=== PATIENT | female | born 1965 | race Caucasian/White ===

== ENCOUNTER 2020-08-11 15:25 | Outpatient (REF) | payer OTHER, SELFPAY | END 2020-08-11 15:26 | disposition home or self-care (01) | LOC: HO.LAB 15:25 | PROVIDERS: Visit Provider Internal Medicine | DX: Z20.828 Contact with and (suspected) exposure to other viral communicable diseases (principal) | CPT/HCPCS: C9803; U0003 ==

== ENCOUNTER 2025-07-31 09:09 | Outpatient (AMB) | payer BC, SELFPAY ==
--- NOTE | 2025-07-31 09:11 | A.PHYSOV_ITS ---
Vital Signs 07/31/25 09:12 Height 5 ft Weight 150 lb BMI 29.3 Intake Visit Reasons: NPV Bonny Ref- neck pain Training Technician Required: No Allergies No Known Allergies (No Known Allergies*) Allergy (Verified 07/31/25 09:14) HPI Comments Details: History of Present Illness The patient is a 60 year old female presenting with neck and shoulder pain, which started approximately one month ago without a specific injury. The pain is centered in the neck muscles and radiates down her arms to her fingertips, associated with nocturnal numbness and tingling. For management, she has used Motrin, Tylenol, and Aleve, finding that Aleve provides some relief and helps with sleep. A muscle relaxer prescribed by her primary care provider was ineffective. She denies any weakness in her arms. A prior X-ray of her neck was unremarkable, showing good alignment and soft tissues. She has not undergone physical therapy or resident care director but is open to trying home exercises. 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 I reviewed the referring provider's no prior to consultation. Pain Description - Onset: Approximately one month. - Location: Central neck muscles and shoulders. - Radiation: Down both arms to the fingertips. - Associated Symptoms: Numbness and tingling in the fingertips, especially at night. - Exacerbating Factors: Pain is worse after work, which involves computer use. - Relieving Factors: Aleve helps alleviate the pain, allowing for sleep. Results - Imaging: A cervical spine X-ray was reviewed and showed good alignment and normal soft tissues. REPLACED BY [facility] Surgical History (Updated 07/28/25 @ 15:20 by Briseida Lion MA) H/O tubal ligation (Unknown) History of cholecystectomy (Unknown) History of lumpectomy (Unknown) Social History Alcohol intake: current Alcohol intake frequency: does not drink Patient Tobacco Use Status: Former Tobacco user Review of Systems Narrative Review of Systems - Musculoskeletal: Reports neck pain, shoulder pain, and pain radiating down her arms. - Neurological: Reports numbness and tingling in fingertips, especially at night. - All other systems reviewed and are negative. Physical Exam Exam Exam: Physical Exam - Neck: Tenderness to palpation noted, particularly on the right side. - Full and non-painful active range of motion including flexion, extension, and bilateral rotation. - Negative Spurling's test bilaterally. - Shoulders: Tenderness to palpation and soreness with active motion, including forward flexion. Positive Neer testing bilaterally. - Neurological: Strength is 5/5 in bilateral upper extremities against resistance in all planes tested. - Grain Cleaner strength is strong and equal. - Sensation to light touch is intact and symmetric throughout the upper extremities with no numbness elicited on exam. Vital Signs: BMI result Body Mass Index 29.3 Assessment & Plan Assessment & Plan (1) Cervical radiculopathy: Code(s): M54.12 - Radiculopathy, cervical region Category: Medical (2) Cervical spondylosis: Code(s): M47.812 - Spondylosis without myelopathy or radiculopathy, cervical region Category: Medical (3) Impingement of both shoulders: Code(s): M25.811 - Other specified joint disorders, right shoulder; M25.812 - Other specified joint disorders, left shoulder Category: Medical Plan Pain Management - Analgesia: The patient uses [id number] Aleve, which she reports takes the edge off and makes the pain livable. - Affect: Pain primarily affects her ability to sleep. - Activities of Daily Living: The pain is notably worse after work. - Aberrant Drug-Related Behaviors: None noted; the patient has been using psts-dhs-[id number] medication as needed and discontinued a prescribed muscle relaxer that was not helpful. Plan Patient was informed and verbally consented to the use of an ambient scribe for clinic note documentation during this visit. 1. Shoulder Pain And Cervicalgia The patient's symptoms of neck pain radiating into the arms are noted; however, the physical exam elicits more pain from the shoulders than the neck, suggesting possible shoulder bursitis or tendinitis. A conservative approach was mutually agreed upon, starting with home exercises for the neck and shoulders. She will continue with kpjt-hmk-tjhojms Aleve as needed. Alternatives to reduce inflammation, such as turmeric and alternating NSAIDs with Tylenol, were discussed. Other options, including cortisone injections and physical therapy, were offered but deferred. A follow-up is scheduled for five weeks to assess response to the home exercise program. If symptoms have not improved, an MRI ? of the neck will be considered at that time, as insurance requirements for conservative treatment will have been met. Discussion Notes I explained to the patient that although her pain radiates from her neck, my physical examination suggests the primary source of pain is her shoulders, possibly due to bursitis or tendinitis. We discussed several treatment options, including physical therapy, cortisone injections, different medications, and a home exercise program. The patient and I agreed to begin with a conservative approach, consisting of home exercises for her neck and shoulders. I advised her that she can continue taking Aleve as needed and discussed alternatives like turmeric or alternating with Tylenol to minimize potential side effects on her organs. I informed her that if her symptoms do not improve after about five weeks of exercises, we can then proceed with an MRI of her neck, as this period of conservative treatment is typically required by insurance companies. The patient agreed to this plan and will schedule a follow-up appointment. Patient Instructions - Begin the home exercise program for your neck and shoulders as demonstrated. - For your neck, perform gentle stretching forward, backward, and [id number]. - For your shoulders, do gentle stretching but do not lift your arms above shoulder level (90 degrees). - You may continue to take [id number]-nip-[id number] Aleve as needed for pain. - You can consider trying natural anti-inflammatories like turmeric, or alternating Aleve with Tylenol. - Schedule a follow-up appointment in five weeks to check your progress. - If your pain does not improve, we will discuss getting an MRI of your neck at your next visit. Coding Level of Care Code New Pt Level 4 (42427) Diagnoses Cervical radiculopathy M54.12 Cervical spondylosis M47.812 Impingement of both shoulders M25.811; M25.812
[2025-07-31 09:12] VITALS: BMI 29.3
--- OUTSIDE RECORDS SUMMARY | 2025-07-31 10:01 | XMS_ITS | Encounter Summary ---
Author Organization [facility] Address [address] [place] [address] Care Team Providers Care Pickler Helper Name Role Phone Debra Cosby MD Primary Care Prov ider Encounter Details Date Type Department Care Team ([facility] st Contact Info) Description 07/07/2025 Results Follow-Up Adult Medicine [facility] [address], [place] [phone] Mar Jones [place] [address], [place] Social History Tobacco Use Types Packs/Day Years Used Date Smoking Tobacco: Former Cigarettes 0.5 Q uit: 07/16/2013 Smokeless Tobacco: Never Alcohol Use Standard Drinks/Week Comments Not Currently 0 (1 standard drink = 0.6 oz pur e alcohol) Housing Instability Answer Date Recorde d Are you worried that in the next 2 months you may not have stable housing? No 02/02/2025 Food Access & Nutrition Answer Date Rec orded Do you have access to a vari ety of food including fruits and vegetables? Yes 02/02/2025 Access to Healthcare Answer Date Record ed Within the last 3 months, ho w many times did you visit the emergency department for your medical care? 0 02/02/2025 Health Literacy Answer Date Recorded How often do you need to hav e someone help you when you read instructions, pamphlets, or other written material from your doctor or pharmacy? Never 02/02/2025 Caregiver: How often do you need to have someone help you when you read instructions, pamphlets, or other written material from your doctor or pharmacy? Not on file 02/02/2025 Financial Risk Answer Date Recorded How hard is it for you to pa y for the very basics like food, housing, medical care, and air conditioning / heating? Not very hard 02/02/2025 Transportation Answer Date Recorded Has the lack of transportati on kept you from meetings, work, or from getting things needed for daily living? No Has the lack of transportati on kept you from medical appointments or from getting medications? No 02/02/2025 Social Isolation Answer Date Recorded How often do you feel lonely or isolated from th ose around you? Never 02/02/2025 Food Risk Answer Date Recorded Within the past 12 months we worried whether our food would run out before we got money to buy more. Never true 02/02/2025 Within the past 12 months th e food we bought just didn't last and we didn't have money to get more. Never true 02/02/2025 Dependent Care Answer Date Recorded Do you need help finding or paying for care for your loved ones. For example, assistant child care teacher or elderly care for an older adult? No 02/02/2025 Education Answer Date Recorded Do you think completing more education or training, like finishing a GED, going to college, or learning a trade, would be helpful for you? No 02/02/2025 Employment and Income Answer Date Recor ded During the last four weeks, have you been actively looking for work? No 02/02/2025 Living Situation Answer Date Recorded What is your living situation? Unrecognized valu e 02/02/2025 Comments No Sex and Gender Information Value Date Recorded Sex Assigned at Not on file Legal Sex Female 10:22 PM EST Gender Identity Not on file Sexual Orientation Not on file documented as of this encounter Plan of Treatment Not on file documented as of this encounter Visit Diagnoses Not on filedocumented in this encounter Additional Health Concerns Assessment Noted Time PHQ-9 Depression Total Score: 0 02/03/20 9:26 AM EDT documented as of this encounter Care Teams Pickler Helper Relationship Specialty Start Date End Date Debra Cosby MD [address] [place] [phone] PCP - General Internal Medicine 02/05/25 documented as of this encounter
--- OUTSIDE RECORDS SUMMARY | 2025-07-31 10:01 | XMS_ITS ---
Author Name [facility] Organization Unknown Care Team Organization Name Specialty Phone Email Start Date End Da te [facility] Dahlia Mckinney Primary Care 09/05/20222023
--- OUTSIDE RECORDS SUMMARY | 2025-07-31 10:01 | XMS_ITS | Clinical Summary ---
Author Organization [facility] [address] [place] [address] [place] [phone] Phone Care Team Providers Care Principal Accounts Clerk Name Role Phone Debra Cosby MD Primary Care Prov ider Allergies No known active allergies Medications anastrozole (ARIMIDEX) 1 mg Take 1 tablet (1 mg total) by mouth 1 (one) time each day Active cholecalciferol (Vitamin D3) 25 mcg (1,000 unit) capsule Take 1 capsule (1,000 Units total) by mouth 1 (one) time each day. 90 capsule 3 5 02/07/20 26 Active atenoloL (TENORMIN) 50 mg tablet Take 1 tablet (50 mg total) by mouth 1 (one) time each day. 90 tablet 1 5 Active simvastatin (ZOCOR) 10 mg tablet Take 1 tablet (10 mg total) by mouth at bedtime. 90 tablet 1 5 Active clobetasoL (TEMOVATE) 0.05 % cream 5 Active cyclobenzaprine (FLEXERIL) 5 mg tablet Take 1 tablet (5 mg total) by mouth at bedtime as needed for muscle spasms. 30 tablet 5 09/05/19 26 Active buPROPion SR (WELLBUTRIN SR) 150 mg 12 hr tablet Take 1 tablet (150 mg total) by mouth 2 (two) times a day. Do not crush, chew, or split. 60 each 2 5 Active varenicline tartrate (CHANTIX RODRIGO) 0.5 mg (11)- 1 mg (42) tablet Take 0.5 mg by mouth 1 (one) time each day for 3 days (days 1-3), THEN 0.5 mg 2 (two) times a day for 4 days (days 4-7), THEN 1 mg 2 (two) times a day for 12 weeks. 53 tablet 07/07/20 25 Discontinu ed(Side effects) Active Problems Problem Noted Date Diagnosed Date Lobular carcinoma of breast (CMS/HCC V24, CMS/HC C V28) 04/01/2024 Overview (08/23/2024): 04/01/2024: See pathology results from biopsy of right breast Hyperlipidemia 05/27/2019 Assessment & Plan (04/04/2025 7:53 AM EDT): Currently on simvastatin with good tolerance. Will recheck a lipid panel and CMP. Continue same medication. Essential hypertension 09/20/2018 Overview (08/23/2024): Last Assessment & Plan: BP mildly elevated today, patient encouraged to f/u with PCP Assessment & Plan (04/04/2025 7:53 AM EDT): Well controlled on Atenolol 50mg. Will continue same medication. Patient is encouraged to follow a low-salt diet and exercise regularly. Vitamin D deficiency 01/10/2013 MRSA (methicillin resistant staph aureus) cultur e positive 12/25/2012 Abscess of left arm 12/03/2012 Eczema 10/30/2012 Encounters Date Type Department Care Team Description 07/07/2025 9:57 AM EST - 07/07/2025 11:59 PM EST Hospital Encounter [address] [phone] Neck pain; Cervical radiculopathy Discharge Disposition: Home or Self Care 07/07/2025 9:30 AM EST Office Visit Adult Medicine [address] [phone] Mar Jones PA Bilateral neck pain (Primary Dx); Neck muscle spasm; Cervical radiculopathy; Tobacco use disorder 07/07/2025 Results Follow-Up Adult Medicine [address] [phone] Mar Jones PA 07/04/2025 Telephone Adult Medicine [address] [phone] Mellisa lindsay, Debra Castro MD from Last 3 Months Immunizations Immunization Administration Dates Next Due Influenza, Unspecified 05/28/2023,06/11/2021 Tdap Tetanus diptheria acell ular pertussis (Boostrix; Adacel) 7yo and older 08/31/2023,10/30/2012 Surgical History Surgery Date Site/Laterality Comments TUBAL LIGATION 1992 PROCEDURE: HISTORICAL TUBAL LIGATION CHOLECYSTECTOMY 10/28/2013 PROCEDURE: HISTORICAL CHOLECYSTECTOMY BREAST LUMPECTOMY 07/07/23 Medical History Medical History Date Comments History of hepatitis C DX:Histor y of hepatitis C; COMMENT: treated 1984 with 1 yr IFN-ribavirin Eczema DX:Eczema Cholelithiasis 09/26/2013 DX:Cholelithiasi s Essential hypertension 09/20/2018 DX:Essent ial hypertension Hyperlipidemia 05/27/2019 DX:Hyperlipidemi a Invasive lobular carcinoma o f breast in female (CMS/HCC V24, CMS/HCC V28) 04/01/2024 DX:Invasive lobul ar carcinoma of breast in female (HCC); COMMENT: 04/01/2024: See pathology results from biopsy of right breast Invasive lobular carcinoma o f breast in female (CMS/HCC V24, CMS/HCC V28) 04/01/2024 DX:Invasive lobul ar carcinoma of breast in female (HCC) Family History Medical History Relation Name Comments No Known Problems Brother 1 No Known Problems Brother 2 CABG Father Taz Diabetes Father Taz Hypertension Father Taz No Known Problems Maternal Grandfather No Known Problems Maternal Grandmother Diabetes Mother Helen Hypertension Mother Helen Breast cancer Mother's side grandmother grandmother No Known Problems Other No Known Problems Paternal Grandfather No Known Problems Paternal Grandmother No Known Problems Son 1 No Known Problems Son 2 Other: Overdose Son 3 Colon cancer Neg Hx Colon polyps Neg Hx Ovarian cancer Neg Hx Relation Name Status Comments Brother 1 Alive Brother 2 Alive Father Taz Maternal Grandfather Maternal Grandmother Mother Helen Mother's side grandmother Other Paternal Grandfather Paternal Grandmother Son 1 Alive Son 2 Alive Son 3 Social History Tobacco Use Types Packs/Day Years Used Date Smoking Tobacco: Former Cigarettes 0.5 Q uit: 07/16/2013 Smokeless Tobacco: Never Tobacco Cessation:Counseling Given: Not Answered Alcohol Use Standard Drinks/Week Comments Not Currently [...] care for your loved ones. For example, early childhood associate or elderly care for an older adult? [...] on file Sexual Orientation Not on file Obstetrics History Para Term AB IAB SAB Ectopic Multiple Livin g Live Births 3 3 3 0 0 0 3 3 Date Outcome GA Total Labor Labor/2nd/3rd Weight Sex Type Anes PTL Toña A1 A5 Name Clin Term M Vag-S pont Living Term M Vag-S pont Living Term M Vag-S pont Living Last Filed Vital Signs Vital Sign Reading Time Taken Comments Blood Pressure 120/79 07/07/2025 9:32 AM EST Pulse 76 07/07/2025 9:32 AM EST Temperature 36.2 C (97.2 F) 07/07/2025 9:32 AM EST Respiratory Rate 15 07/07/2025 9:32 AM EST Oxygen Saturation 96% 07/07/2025 9:49 AM EST Inhaled Oxygen Concentration - - Weight 68.3 kg (150 lb 9.6 oz) 07/07/2025 9:32 A M EST Height 152.4 cm (5') 07/07/2025 9:32 AM EST Body Mass Index 29.41 07/07/2025 9:32 AM EST Plan of Treatment Health Maintenance Due Date Last Done Comments Pneumococcal Vaccine: 50+ Years (1 of 2 - PCV) 1982 Zoster Vaccines (1 of 2) 1982 RSV Immunization Adult Patients (1 - Risk 50-74 years 1-dose series) 2013 HIV Screening 08/06/2022 Breast Cancer Screening 03/29/2025 03/29/20 24, 03/29/2024, 03/22/2024, Additional history exists COVID-19 Vaccine ( season) 2025 09/03/2021, 09/08/2020, 08/15/2020 Social Influencers of Health Screening 02/02/2026 02/02/2025 Hypertension/CHF/CAD Annual BMP Blood Test 04/02/2026 04/02/2025, 10/12/2021 Colorectal Cancer Screening: Colonoscopy 01/02/2029 01/02/2019 Cervical Cancer Screening: HPV 02/06/2030 02/06/2025, 01/18/2019 Cholesterol Screening (Lipid Panel) 04/02/2030 04/02/2025, 05/11/2021 DTaP,Tdap,and Td Vaccines (3 - Td or Tdap) 08/31/2033 08/31/2023, 10/30/2012 Hepatitis C Screening Completed 10/05/2018 Depression Screening Completed 02/02/2025 Influenza Vaccine Completed 05/28/2025, , 06/11/2021 HIB Vaccines Aged Out No longer eligi ble based on patient's age to complete this topic HPV Vaccines Aged Out No longer eligi ble based on patient's age to complete this topic Hepatitis A Vaccines Aged Out No long er eligible based on patient's age to complete this topic Hepatitis B Vaccines Aged Out No long er eligible based on patient's age to complete this topic IPV Vaccines Aged Out No longer eligi ble based on patient's age to complete this topic MMR Vaccines Aged Out No longer eligi ble based on patient's age to complete this topic Meningococcal ACWY Vaccine Aged Out N o longer eligible based on patient's age to complete this topic Meningococcal B Vaccine Aged Out No l onger eligible based on patient's age to complete this topic RSV Immunization Patients Under 20 months Aged Out No longer eligible based on patient's age to complete this topic Varicella Vaccines Aged Out No longer eligible based on patient's age to complete this topic Procedures Procedure Name Priority Date/Time Associated Diagnosis Comments XR CERVICAL SPINE 4-5 VIEWS Routine 07/07/2025 10:03 AM EST Neck pain Cervical radiculopathy COMPREHENSIVE METABOLIC PANEL Routine 04/02/2025 8:14 AM EDT Adult general medical examination LIPID PANEL WITH REFLEX TO DIRECT LDL Routine 04/02/2025 8:14 AM EDT Encounter for lipid screening for cardiovascular disease HPV WITH REFLEX GENOTYPE Routine 02/06/2025 9:55 AM EDT Encounter for annual routine gynecological examination Menopause DX MAMMO INCL CAD UNI Routine 03/29/2024 9:31 AM EDT Other abnormal and inconclusive findings on diagnostic imaging of breast COLONOSCOPY Routine 01/02/2019 HEPATITIS C SCREENING Routine 10/05/2018 from Last 3 Months or Most Recently Relevant to Health Maintenance Results * XR Cervical Spine 4-5 Views (07/07/2025 10:03 AM EST) Anatomical Region Laterality Modality Spine, C-spine Radiographic Jessica ging 07/07/2025 3:14 PM EST Impressions 07/07/2025 3:15 PM EST Spondylosis and neural foraminal narrowing. -------- FINAL REPORT -------- Dictated By: Nanci Schroeder Dictated Date: 07/07/2025 15:14 ET Assigned Physician: Nanci Schroeder Reviewed and Electronically Signed By: Nanci Schroeder Signed Date: 07/07/2025 15:15 ET Workstation ID: [id number] Transcribed By: Self Edit Transcribed Date: 07/07/2025 15:14 ET Narrative 07/07/2025 3:15 PM EST CERVICAL SPINE, 4 VIEWS HISTORY: Neck pain x1 month. FINDINGS: There is normal alignment of the cervical spine. No fracture or dislocation is seen. The paravertebral soft tissues are unremarkable. There is multilevel facet arthropathy. There is multilevel bilateral neural foraminal narrowing from osteophytes. Procedure Note Nanci Schroeder MD - 07/07/2025 CERVICAL SPINE, 4 VIEWS HISTORY: Neck pain x1 month. FINDINGS: There is normal alignment of the cervical spine. No fracture ordislocation is seen. The paravertebral soft tissues are unremarkable. There is multilevel facet arthropathy. There is multilevel bilateral neural foraminal narrowing fromosteophytes. IMPRESSION: Spondylosis and neural foraminal narrowing. -------- FINAL REPORT -------- Dictated By: Nanci Schroeder Dictated Date: 07/07/2025 15:14 ET Assigned Physician: Nanci Schroeder Reviewed and Electronically Signed By: Nanci Schroeder Signed Date: 07/07/2025 15:15 ET Workstation ID: [id number] Transcribed By: Self Edit Transcribed Date: 07/07/2025 15:14 ET us Mar Robert ARZOLA IMG XR PROCEDURES Final Result * (ABNORMAL) Lipid panel with reflex to direct LDL (04/02/2025 8:14 AM EDT) Cholesterol 195 0 - 200 mg/dL LAB CHEMISTRY METHOD 04/02/2025 11:49 AM [facility] Triglycerides 155(H) 0 - 150 mg/dL LAB CHEMISTRY METHOD 04/02/2025 11:49 AM [facility] HDL 68 >=40 mg/dL LAB CHEMISTRY METHOD 04/02/2025 11:49 AM [facility] LDL Calculated 96 0 - 100 mg/dL LAB CHEMISTRY METHOD 04/02/2025 11:49 AM [facility] Comment:Estimated LDL Calcul ated using equation: Total cholesterol - HDL cholesterol - (Triglycerides/5) VLDL Cholesterol Rupert 31 mg/dL LAB CHEMISTRY METHOD 04/02/2025 11:49 AM [facility] Non HDL Chol. (LDL+VLDL) 127 <145 mg/dL LAB CHEMISTRY METHOD 04/02/2025 11:49 AM [facility] Chol/HDL Ratio 2.9 0.0 - 4.4 LAB CHEMISTRY METHOD 04/02/2025 11:49 AM [facility] Blood Venous blood specimen / Unknown Venipuncture / Unknown 04/02/2025 8:14 AM EDT 04/02/2025 8:14 AM EDT us Debra Cosby MD LAB BLOOD ORDERABL ES Final Result [facility] [address] [place] [address], * (ABNORMAL) Comprehensive metabolic panel (04/02/2025 8:14 AM EDT) Sodium 139 133 - 145 mmol/L LAB CHEMISTRY METHOD 04/02/2025 11:49 AM [facility] Potassium 4.3 3.5 - 5.5 mmol/L LAB CHEMISTRY METHOD 04/02/2025 11:49 AM [facility] Chloride 109 96 - 110 mmol/L LAB CHEMISTRY METHOD 04/02/2025 11:49 AM [facility] CO2 24 21 - 32 mmol/L LAB CHEMISTRY METHOD 04/02/2025 11:49 AM [facility] Anion Gap 6 3 - 11 LAB CHEMISTRY METHOD 04/02/2025 11:49 AM [facility] Glucose 110(H) 70 - 100 mg/dL LAB CHEMISTRY METHOD 04/02/2025 11:49 AM [facility] BUN 14 5 - 25 mg/dL LAB CHEMISTRY METHOD 04/02/2025 11:49 AM [facility] Creatinine 0.64 0.50 - 1.10 mg/dL LAB CHEMISTRY METHOD 04/02/2025 11:49 AM [facility] eGFR 101 >=60 mL/min/1. 73m2 LAB CHEMISTRY METHOD 04/02/2025 11:49 AM [facility] Comment:Calculation based on the Chronic Kidney Disease Epidemiology Collaboration (CKD-EPI) equation refit without adjustment for race. BUN/Creatinine Ratio 21.9 LAB CHEMISTRY METHOD 04/02/2025 11:49 AM [facility] Calcium 9.7 8.5 - 10.5 mg/dL LAB CHEMISTRY METHOD 04/02/2025 11:49 AM [facility] AST (SGOT) 20 10 - 42 unit/L LAB CHEMISTRY METHOD 04/02/2025 11:49 AM [facility] ALT (SGPT) 39 10 - 60 unit/L LAB CHEMISTRY METHOD 04/02/2025 11:49 AM [facility] Alkaline Phosphatase 82 42 - 121 unit/L LAB CHEMISTRY METHOD 04/02/2025 11:49 AM [facility] Total Protein 6.9 6.0 - 8.0 g/dL LAB CHEMISTRY METHOD 04/02/2025 11:49 AM [facility] Albumin 3.9 3.2 - 5.0 g/dL LAB CHEMISTRY METHOD 04/02/2025 11:49 AM [facility] Total Bilirubin 0.5 0.0 - 1.4 mg/dL LAB CHEMISTRY METHOD 04/02/2025 11:49 AM [facility] Blood Venous blood specimen / Unknown Venipuncture / Unknown 04/02/2025 8:14 AM EDT 04/02/2025 8:14 AM EDT us Debra Cosby MD LAB BLOOD ORDERABL ES Final Result Performing Organization Address [facility] Co de Phone Number [facility] [address] [place] [address], * HPV with reflex genotype (02/06/2025 9:55 AM EDT) HPV Negative Negative LAB MICROBIOLOGY METHOD 02/07/2025 2:36 PM EDT [facility] Brushing/Spatula Cervix uteri structure / Unknown 02/06/2025 9:55 AM EDT 02/07/2025 7:58 AM EDT Gaby Vargas CNM LAB MOLECULAR DIAGNOSTICS ORDER MIGUEL Final Result [facility] [address] [place] [address], [place] [phone] * DX MAMMO INCL CAD UNI (03/29/2024 9:31 AM EDT) Anatomical Region Laterality Modality Mammography 03/22/2024 10:1 5 AM EDT Narrative 03/29/2024 9:39 AM EDT 2 view digital mammogram right breast for clip placement: See combined report with ultrasound-guided core biopsy and clip placement the same day. Procedure Note Nanci Schroeder MD - 06/12/2024 2 view digital mammogram right breast for clip placement: See combinedreport with ultrasound-guided core biopsy and clip placement the same day. Dahlia ARZOLA IMG BI PROCEDURES Final Result * Colonoscopy (01/02/2019) Pathologist [facility] Colonoscopy no interpretation , abstracted Anatomical Region Laterality Modality Other Historical Provider HEALTH MAINTENANCE Final Result * Hepatitis C Screening (10/05/2018) Pathologist [facility] Hepatitis C Screening abstracted Historical Provider HEALTH MAINTENANCE Final Result from Last 3 Months or Most Recently Relevant to Health Maintenance Insurance [facility] Care Teams Principal Accounts Clerk Relationship Specialty Start Date End Date Debra Cosby MD [address] [place] [phone] PCP - General Internal Medicine 02/05/25
--- OUTSIDE RECORDS SUMMARY | 2025-07-31 10:01 | XMS_ITS | Patient Health Record ---
Author Organization [facility] Address [address] [place] [address] Support Name Relationship Address Phone KRISTOPHER CORDERO Guarantor Unknown [phone] Reason For Referral No Information Medications Medication SIG (Take, Route, Frequency, Duration) Notes Start Date End Date Status Chantix Continuing Month Pedro 1 MG 1 ORAL twice daily; Duration: -3 Beka-MJ 02/28/2012 Active Chantix Starting Month Pedro 0.5 ORAL; Duration: -3 [place]eka-MJ 02/28/2012 Active predniSONE 10MG ORAL; Duration: -3 [place]ek[place]-MJ 01/18/2012 Active Problems Problem Type SNOMED Code ICD Code Onset Dates Problem Status W/U Status Risk Notes Problem Tobacco user (310085620) Nondependent tobacco use disorder (305.1) Active confirmed Major Problem Generalized atopic dermatitis (437861682) Other atopic dermatitis and related conditions (691.8) Active confirmed Other Problem Counseling (290804501) Other counseling, not elsewhere classified (V65.4) Active confirmed Diag Plan Of Treatment No Information Insurance Providers Payer Name Payer Address Payer Phone Subscriber Number Group Number Insured Name Patient Relationship to Insured Coverage Start Date Coverage End Date [facility] [address] [place] [address] [id number] KRISTOPHER CORDERO Self - patient is the insured 1
== END 2025-07-31 09:35 | disposition home or self-care (01) ==
LOC: HO.HPHYS 09:09
PROVIDERS: PCP Internal Medicine; Visit Provider Physician Assistant
DX: M54.12 Radiculopathy, cervical region (principal); M47.812 Spondylosis without myelopathy or radiculopathy, cervical region; M25.811 Other specified joint disorders, right shoulder; M25.812 Other specified joint disorders, left shoulder
CPT/HCPCS: 99204